=== PATIENT | female | born 1965 | race Caucasian/White ===

== ENCOUNTER 2018-09-06 00:13 | Day surgery (SDC) | payer OTHER ==
[~2018-09-06 00:13] MED LIST: AMIT10 PO; AMLODIPINE PO; ATOR10 PO; ATORVASTATIN PO; CEPH500 PO; CLOP75 PO; FLUO20 PO; FURO20 PO; HYDACE10B PO; INSDET100 SQ; INSUASPI SC; METF500 PO; METFORMIN PO; METO50 PO; POTCHL10ER PO; PROM25 PO; PROZAC PO; Percocet 5-3251 EACH PO; Prednisone20 MG PO; RANI150 PO; ROSU10TA PO; TRAM50 PO
== END 2018-09-06 22:38 | disposition home or self-care (01) ==
LOC: WOUND 00:13
DX: E11.621 Type 2 diabetes mellitus with foot ulcer (principal); L97.515 Non-pressure chronic ulcer of other part of right foot with muscle involvement without evidence of necrosis; L97.522 Non-pressure chronic ulcer of other part of left foot with fat layer exposed; E11.40 Type 2 diabetes mellitus with diabetic neuropathy, unspecified; I10 Essential (primary) hypertension; I25.10 Atherosclerotic heart disease of native coronary artery without angina pectoris; I25.2 Old myocardial infarction; E78.5 Hyperlipidemia, unspecified; Z87.891 Personal history of nicotine dependence; Z79.899 Other long term (current) drug therapy; Z79.4 Long term (current) use of insulin

== ENCOUNTER 2018-09-13 01:26 | Day surgery (SDC) | payer OTHER | END 2018-09-13 23:07 | disposition home or self-care (01) | LOC: WOUND 01:26 | DX: E11.621 Type 2 diabetes mellitus with foot ulcer (principal); L97.515 Non-pressure chronic ulcer of other part of right foot with muscle involvement without evidence of necrosis; L97.522 Non-pressure chronic ulcer of other part of left foot with fat layer exposed; E11.40 Type 2 diabetes mellitus with diabetic neuropathy, unspecified; I10 Essential (primary) hypertension; I25.10 Atherosclerotic heart disease of native coronary artery without angina pectoris; I25.2 Old myocardial infarction; E78.5 Hyperlipidemia, unspecified ==

== ENCOUNTER 2018-09-22 09:50 | Day surgery (SDC) | payer OTHER | END 2018-09-22 23:25 | disposition home or self-care (01) | LOC: WOUND 09:50 | DX: E11.621 Type 2 diabetes mellitus with foot ulcer (principal); L97.511 Non-pressure chronic ulcer of other part of right foot limited to breakdown of skin; L97.522 Non-pressure chronic ulcer of other part of left foot with fat layer exposed; E11.40 Type 2 diabetes mellitus with diabetic neuropathy, unspecified; I10 Essential (primary) hypertension; I25.10 Atherosclerotic heart disease of native coronary artery without angina pectoris; I25.2 Old myocardial infarction; E78.5 Hyperlipidemia, unspecified ==

== ENCOUNTER 2018-10-06 09:47 | Day surgery (SDC) | payer OTHER | END 2018-10-06 23:02 | disposition home or self-care (01) | LOC: WOUND 09:47 | DX: E11.621 Type 2 diabetes mellitus with foot ulcer (principal); L97.515 Non-pressure chronic ulcer of other part of right foot with muscle involvement without evidence of necrosis; I10 Essential (primary) hypertension; E78.5 Hyperlipidemia, unspecified ==

== ENCOUNTER 2018-10-13 09:50 | Day surgery (SDC) | payer OTHER | END 2018-10-13 22:55 | disposition home or self-care (01) | LOC: WOUND 09:50 | DX: E11.621 Type 2 diabetes mellitus with foot ulcer (principal); S91.301A Unspecified open wound, right foot, initial encounter; L97.512 Non-pressure chronic ulcer of other part of right foot with fat layer exposed; E11.40 Type 2 diabetes mellitus with diabetic neuropathy, unspecified; I10 Essential (primary) hypertension; I25.10 Atherosclerotic heart disease of native coronary artery without angina pectoris; I25.2 Old myocardial infarction; E78.5 Hyperlipidemia, unspecified ==

== ENCOUNTER 2018-10-20 09:58 | Day surgery (SDC) | payer OTHER | END 2018-10-21 22:39 | disposition home or self-care (01) | LOC: WOUND 09:58 | DX: E11.621 Type 2 diabetes mellitus with foot ulcer (principal); L97.511 Non-pressure chronic ulcer of other part of right foot limited to breakdown of skin; S91.301A Unspecified open wound, right foot, initial encounter; E11.40 Type 2 diabetes mellitus with diabetic neuropathy, unspecified; I10 Essential (primary) hypertension; I25.10 Atherosclerotic heart disease of native coronary artery without angina pectoris; I25.2 Old myocardial infarction; E78.5 Hyperlipidemia, unspecified ==

== ENCOUNTER 2018-10-27 00:21 | Day surgery (SDC) | payer OTHER | END 2018-10-27 22:47 | disposition home or self-care (01) | LOC: WOUND 00:21 | DX: E11.621 Type 2 diabetes mellitus with foot ulcer (principal); L97.512 Non-pressure chronic ulcer of other part of right foot with fat layer exposed; E11.40 Type 2 diabetes mellitus with diabetic neuropathy, unspecified; I25.119 Atherosclerotic heart disease of native coronary artery with unspecified angina pectoris; I25.2 Old myocardial infarction; I10 Essential (primary) hypertension; E78.5 Hyperlipidemia, unspecified | CPT/HCPCS: Q4196 ==

== ENCOUNTER 2018-11-10 09:50 | Day surgery (SDC) | payer OTHER | END 2018-11-10 22:55 | disposition home or self-care (01) | LOC: WOUND 09:50 | DX: E11.621 Type 2 diabetes mellitus with foot ulcer (principal); L97.511 Non-pressure chronic ulcer of other part of right foot limited to breakdown of skin; I10 Essential (primary) hypertension; E78.5 Hyperlipidemia, unspecified | CPT/HCPCS: Q4196 ==

== ENCOUNTER 2018-11-17 09:00 | Day surgery (SDC) | payer OTHER | END 2018-11-17 22:44 | disposition home or self-care (01) | LOC: WOUND 09:00 | DX: E11.621 Type 2 diabetes mellitus with foot ulcer (principal); L97.512 Non-pressure chronic ulcer of other part of right foot with fat layer exposed; E11.40 Type 2 diabetes mellitus with diabetic neuropathy, unspecified; I10 Essential (primary) hypertension; I25.10 Atherosclerotic heart disease of native coronary artery without angina pectoris; I25.2 Old myocardial infarction; E78.5 Hyperlipidemia, unspecified | CPT/HCPCS: G0463 ==

== ENCOUNTER 2018-11-24 10:00 | Day surgery (SDC) | payer OTHER | END 2018-11-24 22:59 | disposition home or self-care (01) | LOC: WOUND 10:00 | DX: E11.621 Type 2 diabetes mellitus with foot ulcer (principal); L97.512 Non-pressure chronic ulcer of other part of right foot with fat layer exposed; I25.10 Atherosclerotic heart disease of native coronary artery without angina pectoris; I10 Essential (primary) hypertension; I25.2 Old myocardial infarction; E11.40 Type 2 diabetes mellitus with diabetic neuropathy, unspecified; S91.301A Unspecified open wound, right foot, initial encounter | CPT/HCPCS: Q4196 ==

== ENCOUNTER 2018-12-08 09:45 | Day surgery (SDC) | payer OTHER | END 2018-12-08 22:53 | disposition home or self-care (01) | LOC: WOUND 09:45 | DX: E11.621 Type 2 diabetes mellitus with foot ulcer (principal); E11.40 Type 2 diabetes mellitus with diabetic neuropathy, unspecified; L97.511 Non-pressure chronic ulcer of other part of right foot limited to breakdown of skin; I10 Essential (primary) hypertension; I25.10 Atherosclerotic heart disease of native coronary artery without angina pectoris; I25.2 Old myocardial infarction; E78.5 Hyperlipidemia, unspecified | CPT/HCPCS: Q4196 ==

== ENCOUNTER 2018-12-22 09:47 | Day surgery (SDC) | payer OTHER | END 2018-12-22 23:26 | disposition home or self-care (01) | LOC: WOUND 09:47 | PROC: 0HDMXZZ Extraction of Right Foot Skin, External Approach (ICD-10-PCS; principal; 2018-12-22) | DX: E11.621 Type 2 diabetes mellitus with foot ulcer (principal); L97.411 Non-pressure chronic ulcer of right heel and midfoot limited to breakdown of skin; I10 Essential (primary) hypertension; E78.5 Hyperlipidemia, unspecified | CPT/HCPCS: J2250; J3010; J7040 ==

== ENCOUNTER 2018-12-29 01:01 | Day surgery (SDC) | payer OTHER | END 2018-12-29 23:27 | disposition home or self-care (01) | LOC: WOUND 01:01 | DX: E11.621 Type 2 diabetes mellitus with foot ulcer (principal); L97.512 Non-pressure chronic ulcer of other part of right foot with fat layer exposed; I10 Essential (primary) hypertension; E78.5 Hyperlipidemia, unspecified ==

== ENCOUNTER 2019-01-05 02:41 | Day surgery (SDC) | payer OTHER | END 2019-01-05 22:42 | disposition home or self-care (01) | LOC: WOUND 02:41 | DX: E11.621 Type 2 diabetes mellitus with foot ulcer (principal); L97.511 Non-pressure chronic ulcer of other part of right foot limited to breakdown of skin ==

== ENCOUNTER 2019-01-19 09:50 | Day surgery (SDC) | payer OTHER | END 2019-01-19 23:05 | disposition home or self-care (01) | LOC: WOUND 09:50 | DX: E11.621 Type 2 diabetes mellitus with foot ulcer (principal); L97.512 Non-pressure chronic ulcer of other part of right foot with fat layer exposed; I10 Essential (primary) hypertension; E78.5 Hyperlipidemia, unspecified ==

== ENCOUNTER 2019-01-26 02:04 | Day surgery (SDC) | payer OTHER | END 2019-01-26 23:59 | disposition home or self-care (01) | LOC: WOUND 02:04 | DX: E11.621 Type 2 diabetes mellitus with foot ulcer (principal); L97.511 Non-pressure chronic ulcer of other part of right foot limited to breakdown of skin; I10 Essential (primary) hypertension; E78.5 Hyperlipidemia, unspecified ==

== ENCOUNTER 2019-02-02 10:00 | Day surgery (SDC) | payer OTHER | END 2019-02-02 23:00 | disposition home or self-care (01) | LOC: WOUND 10:00 | DX: E11.621 Type 2 diabetes mellitus with foot ulcer (principal); L97.512 Non-pressure chronic ulcer of other part of right foot with fat layer exposed; I10 Essential (primary) hypertension ==

== ENCOUNTER 2019-02-09 00:39 | Day surgery (SDC) | payer OTHER | END 2019-02-10 00:07 | disposition home or self-care (01) | LOC: WOUND 00:39 | DX: E11.621 Type 2 diabetes mellitus with foot ulcer (principal); L97.512 Non-pressure chronic ulcer of other part of right foot with fat layer exposed; I10 Essential (primary) hypertension; E78.5 Hyperlipidemia, unspecified | CPT/HCPCS: G0463 ==

== ENCOUNTER 2019-03-02 00:47 | Day surgery (SDC) | payer OTHER | END 2019-03-02 23:21 | disposition home or self-care (01) | LOC: WOUND 00:47 | DX: E11.621 Type 2 diabetes mellitus with foot ulcer (principal); L97.511 Non-pressure chronic ulcer of other part of right foot limited to breakdown of skin; I10 Essential (primary) hypertension; E78.5 Hyperlipidemia, unspecified ==

== ENCOUNTER 2019-03-09 01:17 | Day surgery (SDC) | payer OTHER | END 2019-03-09 22:51 | disposition home or self-care (01) | LOC: WOUND 01:17 | DX: E11.621 Type 2 diabetes mellitus with foot ulcer (principal); L97.511 Non-pressure chronic ulcer of other part of right foot limited to breakdown of skin; I10 Essential (primary) hypertension; E78.5 Hyperlipidemia, unspecified ==

== ENCOUNTER 2019-03-16 00:46 | Day surgery (SDC) | payer OTHER | END 2019-03-16 22:51 | disposition home or self-care (01) | LOC: WOUND 00:46 | DX: E11.621 Type 2 diabetes mellitus with foot ulcer (principal); L97.511 Non-pressure chronic ulcer of other part of right foot limited to breakdown of skin; I10 Essential (primary) hypertension; E11.40 Type 2 diabetes mellitus with diabetic neuropathy, unspecified ==

== ENCOUNTER 2019-04-06 00:45 | Day surgery (SDC) | payer OTHER | END 2019-04-06 23:00 | disposition home or self-care (01) | LOC: WOUND 00:45 | DX: E11.621 Type 2 diabetes mellitus with foot ulcer (principal); L97.512 Non-pressure chronic ulcer of other part of right foot with fat layer exposed; I10 Essential (primary) hypertension; E78.5 Hyperlipidemia, unspecified ==

== ENCOUNTER 2019-04-12 09:00 | Day surgery (SDC) | payer OTHER | END 2019-04-12 23:12 | disposition home or self-care (01) | LOC: WOUND 09:00 | DX: E11.621 Type 2 diabetes mellitus with foot ulcer (principal); L97.512 Non-pressure chronic ulcer of other part of right foot with fat layer exposed; I10 Essential (primary) hypertension ==

== ENCOUNTER 2019-04-20 00:32 | Day surgery (SDC) | payer OTHER | END 2019-04-20 22:52 | disposition home or self-care (01) | LOC: WOUND 00:32 | DX: E11.621 Type 2 diabetes mellitus with foot ulcer (principal); L97.512 Non-pressure chronic ulcer of other part of right foot with fat layer exposed; E11.40 Type 2 diabetes mellitus with diabetic neuropathy, unspecified; I10 Essential (primary) hypertension; E78.5 Hyperlipidemia, unspecified; I25.10 Atherosclerotic heart disease of native coronary artery without angina pectoris; Z79.02 Long term (current) use of antithrombotics/antiplatelets; Z79.4 Long term (current) use of insulin; Z79.899 Other long term (current) drug therapy; Z88.8 Allergy status to other drugs, medicaments and biological substances | CPT/HCPCS: G0463 ==

== ENCOUNTER 2019-05-01 05:16 | Emergency (ER) | payer OTHER ==
[~2019-05-01] VITALS: Ht 170.2 cm; Wt 95.2 kg
[~2019-05-01 05:16] MED LIST changes: -INSUASPI SC; +NOVOLOG100 UNIT/1 SC
[2019-05-01 06:20] LABS: BASOPHILS ABSOLUTE AUTO 0.04 K/mm3 (0.00-0.23); BASOPHILS PERCENT AUTO 0 % (0-2); EOSINOPHILS ABSOLUTE AUTO 0.08 K/mm3 (0.00-0.68); EOSINOPHILS PERCENT AUTO 1 % (0-6); Hematocrit 38.9 % (33.0-51.0); Hemoglobin 13.3 g/dL (11.5-16.0); IMMATURE GRAN ABSOLUTE AUTO 0.04 K/mm3 (0.00-0.10); IMMATURE GRAN PERCENT AUTO 0 % (0-1); LYMPHOCYTES ABSOLUTE AUTO 1.42 K/mm3 (0.84-5.20); LYMPHOCYTES PERCENT AUTO 13 % (21-46); MONOCYTES PERCENT AUTO 5 % (4-13); Mean Corpuscular HGB 30.9 pg (26.0-34.0); Mean Corpuscular HGB Conc 34.2 g/dL (31.5-36.5); Mean Corpuscular Volume 91 fL (80-100); Mean Platelet Volume 9.5 fL (9.1-12.4); NEUTROPHILS ABSOLUTE AUTO 9.22 K/mm3 (1.96-9.15); NEUTROPHILS PERCENT AUTO 81 % (41-73); Platelet Count 233 K/mm3 (150-400); RDW Standard Deviation 39.5 fL (35.1-46.3)
[2019-05-01 06:40] LABS: Alanine Aminotransfer (ALT/SGP 94 U/L (12-78); Albumin, Blood 3.4 g/dL (3.4-5.0); Albumin/Globulin Ratio 0.9 (0.8-1.8); Alk Phos 88 U/L (50-136); Anion Gap 8 mmol/L (6-16); Aspartate Aminotrans (AST/SGOT 61 U/L (12-37); Bilirubin, Total 0.4 mg/dL (0.1-1.0); Blood Urea Nitrogen 7 mg/dL (8-24); CO2, Blood 24 mmol/L (21-32); Calcium, Blood 8.5 mg/dL (8.5-10.1); Chloride, Blood 104 mmol/L (98-108); Creatinine, Blood 0.54 mg/dL (0.40-1.00); Globulin, Blood 3.6 g/dL (2.2-4.0); Glomerular Filtration Rate >60 (60-); Glucose, Blood 232 mg/dL (70-99); Potassium, Blood 4.2 mmol/L (3.5-5.5); Sodium, Blood 136 mmol/L (136-145)
[2019-05-01 07:34] LABS: Source, Urine Clean Catch
[2019-05-01 07:37] LABS: Bilirubin, Urine Neg (Neg); Blood, Urine 5+ (Neg); Color, Urine Yellow (P-Yellow); Glucose Qualitative, Urine 2+ (Neg); Ketones, Urine 4+ (Neg); Leukocyte Esterase, Urine 3+ (Neg); Nitrite, Urine Neg (Neg); Protein, Urine 2+ (Neg); Specific Gravity, Urine 1.025 (1.003-1.022); Urobilinogen, Urine NORM (Normal)
[2019-05-01 07:47] LABS: Squamous Epithelial Cells Mod /hpf (Few)
[2019-05-01 07:48] LABS: Appearance, Urine Hazy (Clear); Bacteria Many /hpf; Calcium Oxalate Crystals Many /hpf; Mucus Light (0-Heavy)
== END 2019-05-01 12:01 | disposition short-term general hospital (02) ==
LOC: ER 05:16
PROVIDERS: Emergency Medicine
DX: A41.9 Sepsis, unspecified organism (principal); N39.0 Urinary tract infection, site not specified; N13.2 Hydronephrosis with renal and ureteral calculous obstruction; I10 Essential (primary) hypertension; E11.9 Type 2 diabetes mellitus without complications; I25.2 Old myocardial infarction; E78.5 Hyperlipidemia, unspecified; Z87.891 Personal history of nicotine dependence
CPT/HCPCS: 36415; 74176; 80053; 81001; 83605; 83690; 85025; 87040; 87086; 96361; 96365; 96375; 96376; 99285-25; J0696; J1170; J2405; J7030; J7120

== ENCOUNTER 2019-05-04 11:19 | Day surgery (SDC) | payer OTHER | END 2019-05-04 22:46 | disposition home or self-care (01) | LOC: WOUND 11:19 | DX: E11.621 Type 2 diabetes mellitus with foot ulcer (principal); I10 Essential (primary) hypertension; E78.5 Hyperlipidemia, unspecified; L97.512 Non-pressure chronic ulcer of other part of right foot with fat layer exposed; Z87.891 Personal history of nicotine dependence; Z79.02 Long term (current) use of antithrombotics/antiplatelets; Z79.4 Long term (current) use of insulin; Z79.899 Other long term (current) drug therapy ==

== ENCOUNTER 2019-05-25 09:16 | Day surgery (SDC) | payer OTHER | END 2019-05-25 23:43 | disposition home or self-care (01) | LOC: WOUND 09:16 | DX: E11.621 Type 2 diabetes mellitus with foot ulcer (principal); L97.512 Non-pressure chronic ulcer of other part of right foot with fat layer exposed; E11.40 Type 2 diabetes mellitus with diabetic neuropathy, unspecified; E11.36 Type 2 diabetes mellitus with diabetic cataract; H26.9 Unspecified cataract; I10 Essential (primary) hypertension; E78.5 Hyperlipidemia, unspecified; I25.10 Atherosclerotic heart disease of native coronary artery without angina pectoris; I25.2 Old myocardial infarction; E07.9 Disorder of thyroid, unspecified; Z79.02 Long term (current) use of antithrombotics/antiplatelets; Z79.4 Long term (current) use of insulin; Z79.899 Other long term (current) drug therapy; Z88.4 Allergy status to anesthetic agent; Z88.8 Allergy status to other drugs, medicaments and biological substances ==

== ENCOUNTER 2019-06-15 01:46 | Day surgery (SDC) | payer OTHER | END 2019-06-15 23:18 | disposition home or self-care (01) | LOC: WOUND 01:46 | DX: E11.621 Type 2 diabetes mellitus with foot ulcer (principal); L97.512 Non-pressure chronic ulcer of other part of right foot with fat layer exposed; E11.36 Type 2 diabetes mellitus with diabetic cataract; H26.9 Unspecified cataract; E11.40 Type 2 diabetes mellitus with diabetic neuropathy, unspecified; J32.9 Chronic sinusitis, unspecified; I10 Essential (primary) hypertension; E78.5 Hyperlipidemia, unspecified; I49.9 Cardiac arrhythmia, unspecified; I25.10 Atherosclerotic heart disease of native coronary artery without angina pectoris; I25.2 Old myocardial infarction; E07.9 Disorder of thyroid, unspecified; Z79.02 Long term (current) use of antithrombotics/antiplatelets; Z79.4 Long term (current) use of insulin; Z79.899 Other long term (current) drug therapy ==

== ENCOUNTER 2019-06-21 08:02 | Day surgery (SDC) | payer OTHER | END 2019-06-21 23:06 | disposition home or self-care (01) | LOC: WOUND 08:02 | DX: E11.621 Type 2 diabetes mellitus with foot ulcer (principal); L97.511 Non-pressure chronic ulcer of other part of right foot limited to breakdown of skin; E11.40 Type 2 diabetes mellitus with diabetic neuropathy, unspecified; E11.36 Type 2 diabetes mellitus with diabetic cataract; H26.9 Unspecified cataract; I10 Essential (primary) hypertension; E78.5 Hyperlipidemia, unspecified; J32.9 Chronic sinusitis, unspecified; I49.9 Cardiac arrhythmia, unspecified; I25.10 Atherosclerotic heart disease of native coronary artery without angina pectoris; I25.2 Old myocardial infarction; E07.9 Disorder of thyroid, unspecified; Z79.02 Long term (current) use of antithrombotics/antiplatelets; Z79.4 Long term (current) use of insulin; Z79.899 Other long term (current) drug therapy; Z88.4 Allergy status to anesthetic agent; Z88.8 Allergy status to other drugs, medicaments and biological substances ==

== ENCOUNTER 2019-07-05 00:15 | Day surgery (SDC) | payer OTHER | END 2019-07-05 22:59 | disposition home or self-care (01) | LOC: WOUND 00:15 | DX: E11.621 Type 2 diabetes mellitus with foot ulcer (principal); L97.512 Non-pressure chronic ulcer of other part of right foot with fat layer exposed; I10 Essential (primary) hypertension; E78.5 Hyperlipidemia, unspecified; Z79.02 Long term (current) use of antithrombotics/antiplatelets; Z79.899 Other long term (current) drug therapy; Z79.4 Long term (current) use of insulin ==

== ENCOUNTER 2019-07-26 00:29 | Day surgery (SDC) | payer OTHER | END 2019-07-26 23:02 | disposition home or self-care (01) | LOC: WOUND 00:29 | DX: E11.621 Type 2 diabetes mellitus with foot ulcer (principal); L97.512 Non-pressure chronic ulcer of other part of right foot with fat layer exposed; I10 Essential (primary) hypertension; E78.5 Hyperlipidemia, unspecified; Z79.02 Long term (current) use of antithrombotics/antiplatelets; Z79.899 Other long term (current) drug therapy; Z79.84 Long term (current) use of oral hypoglycemic drugs | CPT/HCPCS: 87070; 87075; 87076; 87147; 87205 ==

== ENCOUNTER 2019-08-02 00:12 | Day surgery (SDC) | payer OTHER | END 2019-08-02 23:15 | disposition home or self-care (01) | LOC: WOUND 00:12 | DX: E11.621 Type 2 diabetes mellitus with foot ulcer (principal); L97.512 Non-pressure chronic ulcer of other part of right foot with fat layer exposed; I10 Essential (primary) hypertension; E78.5 Hyperlipidemia, unspecified; Z79.02 Long term (current) use of antithrombotics/antiplatelets; Z79.4 Long term (current) use of insulin; Z79.899 Other long term (current) drug therapy ==

== ENCOUNTER 2019-08-09 00:12 | Day surgery (SDC) | payer OTHER | END 2019-08-09 22:48 | disposition home or self-care (01) | LOC: WOUND 00:12 | DX: E11.621 Type 2 diabetes mellitus with foot ulcer (principal); L97.512 Non-pressure chronic ulcer of other part of right foot with fat layer exposed; I10 Essential (primary) hypertension; E78.5 Hyperlipidemia, unspecified; Z79.02 Long term (current) use of antithrombotics/antiplatelets; Z79.4 Long term (current) use of insulin; Z79.899 Other long term (current) drug therapy ==

== ENCOUNTER 2019-08-16 00:26 | Day surgery (SDC) | payer OTHER | END 2019-08-16 23:12 | disposition home or self-care (01) | LOC: WOUND 00:26 | DX: E11.621 Type 2 diabetes mellitus with foot ulcer (principal); I10 Essential (primary) hypertension; E78.5 Hyperlipidemia, unspecified; L97.512 Non-pressure chronic ulcer of other part of right foot with fat layer exposed; Z79.02 Long term (current) use of antithrombotics/antiplatelets; Z79.4 Long term (current) use of insulin ==

== ENCOUNTER → 2021-07-22 | Outpatient (CLI) | payer OTHER | END | disposition home or self-care (01) | LOC: LAB SHORT 10:35 | DX: R30.9 Painful micturition, unspecified (principal) | CPT/HCPCS: 87086; 87147 ==

== ENCOUNTER 2021-12-01 02:57 | Day surgery (SDC) | payer OTHER | END 2021-12-01 22:35 | disposition home or self-care (01) | LOC: WOUND 02:57 | DX: E11.621 Type 2 diabetes mellitus with foot ulcer (principal); L97.411 Non-pressure chronic ulcer of right heel and midfoot limited to breakdown of skin; L97.512 Non-pressure chronic ulcer of other part of right foot with fat layer exposed; R77.0 Abnormality of albumin; E11.40 Type 2 diabetes mellitus with diabetic neuropathy, unspecified; Z87.891 Personal history of nicotine dependence; Z88.8 Allergy status to other drugs, medicaments and biological substances | CPT/HCPCS: A9270; G0463 ==

== ENCOUNTER 2021-12-08 05:25 | Day surgery (SDC) | payer OTHER | END 2021-12-08 22:43 | disposition home or self-care (01) | LOC: WOUND 05:25 | DX: E11.621 Type 2 diabetes mellitus with foot ulcer (principal); L97.512 Non-pressure chronic ulcer of other part of right foot with fat layer exposed; R77.0 Abnormality of albumin; E11.40 Type 2 diabetes mellitus with diabetic neuropathy, unspecified | CPT/HCPCS: A9270 ==

== ENCOUNTER 2021-12-15 01:25 | Day surgery (SDC) | payer OTHER | END 2021-12-15 23:00 | disposition home or self-care (01) | LOC: WOUND 01:25 | DX: E11.621 Type 2 diabetes mellitus with foot ulcer (principal); L97.512 Non-pressure chronic ulcer of other part of right foot with fat layer exposed; R77.0 Abnormality of albumin; E11.40 Type 2 diabetes mellitus with diabetic neuropathy, unspecified | CPT/HCPCS: A9270 ==

== ENCOUNTER → 2021-12-29 | Day surgery (SDC) | payer OTHER | LOC: WOUND 03:15 | DX: E11.621 Type 2 diabetes mellitus with foot ulcer (principal); L97.512 Non-pressure chronic ulcer of other part of right foot with fat layer exposed; R77.0 Abnormality of albumin; E11.40 Type 2 diabetes mellitus with diabetic neuropathy, unspecified | CPT/HCPCS: A9270 ==

== ENCOUNTER 2022-01-25 03:40 | Day surgery (SDC) | payer OTHER | END 2022-01-25 22:40 | disposition home or self-care (01) | LOC: WOUND 03:40 | DX: E11.621 Type 2 diabetes mellitus with foot ulcer (principal); L97.512 Non-pressure chronic ulcer of other part of right foot with fat layer exposed; R77.0 Abnormality of albumin; E11.40 Type 2 diabetes mellitus with diabetic neuropathy, unspecified; I10 Essential (primary) hypertension | CPT/HCPCS: G0463 ==

== ENCOUNTER 2022-02-08 01:18 | Day surgery (SDC) | payer OTHER | END 2022-02-08 23:02 | disposition home or self-care (01) | LOC: WOUND 01:18 | DX: E11.621 Type 2 diabetes mellitus with foot ulcer (principal); L97.512 Non-pressure chronic ulcer of other part of right foot with fat layer exposed; R77.0 Abnormality of albumin; E11.40 Type 2 diabetes mellitus with diabetic neuropathy, unspecified; I10 Essential (primary) hypertension; E78.5 Hyperlipidemia, unspecified ==

== ENCOUNTER 2022-03-16 07:53 | Day surgery (SDC) | payer OTHER | END 2022-03-16 22:46 | disposition home or self-care (01) | LOC: WOUND 07:53 | DX: E11.621 Type 2 diabetes mellitus with foot ulcer (principal); L97.512 Non-pressure chronic ulcer of other part of right foot with fat layer exposed; E11.40 Type 2 diabetes mellitus with diabetic neuropathy, unspecified; R77.0 Abnormality of albumin ==

== ENCOUNTER 2022-03-30 02:47 | Day surgery (SDC) | payer OTHER | END 2022-03-30 23:05 | disposition home or self-care (01) | LOC: WOUND 02:47 | DX: E11.621 Type 2 diabetes mellitus with foot ulcer (principal); L97.512 Non-pressure chronic ulcer of other part of right foot with fat layer exposed; R77.0 Abnormality of albumin; E11.40 Type 2 diabetes mellitus with diabetic neuropathy, unspecified ==

== ENCOUNTER 2022-04-20 03:56 | Day surgery (SDC) | payer OTHER | END 2022-04-20 23:02 | disposition home or self-care (01) | LOC: WOUND 03:56 | DX: E11.621 Type 2 diabetes mellitus with foot ulcer (principal); L97.512 Non-pressure chronic ulcer of other part of right foot with fat layer exposed; E11.40 Type 2 diabetes mellitus with diabetic neuropathy, unspecified | CPT/HCPCS: A9270; G0463 ==

== ENCOUNTER 2022-05-04 03:22 | Day surgery (SDC) | payer OTHER | END 2022-05-04 22:40 | disposition home or self-care (01) | LOC: WOUND 03:22 | DX: E11.622 Type 2 diabetes mellitus with other skin ulcer (principal); L97.512 Non-pressure chronic ulcer of other part of right foot with fat layer exposed; I87.2 Venous insufficiency (chronic) (peripheral); E11.40 Type 2 diabetes mellitus with diabetic neuropathy, unspecified | CPT/HCPCS: G0463 ==

== ENCOUNTER 2022-05-17 10:21 | Day surgery (SDC) | payer OTHER | END 2022-05-17 22:41 | disposition home or self-care (01) | LOC: WOUND 10:21 | DX: E11.621 Type 2 diabetes mellitus with foot ulcer (principal); L97.512 Non-pressure chronic ulcer of other part of right foot with fat layer exposed; I10 Essential (primary) hypertension; E78.5 Hyperlipidemia, unspecified; E11.40 Type 2 diabetes mellitus with diabetic neuropathy, unspecified ==

== ENCOUNTER 2022-05-31 00:55 | Day surgery (SDC) | payer OTHER | END 2022-05-31 22:43 | disposition home or self-care (01) | LOC: WOUND 00:55 | DX: E11.621 Type 2 diabetes mellitus with foot ulcer (principal); L97.512 Non-pressure chronic ulcer of other part of right foot with fat layer exposed; E11.40 Type 2 diabetes mellitus with diabetic neuropathy, unspecified; R77.0 Abnormality of albumin; I10 Essential (primary) hypertension ==

== ENCOUNTER 2022-10-27 00:05 | Day surgery (SDC) | payer OTHER | END 2022-10-27 22:49 | disposition home or self-care (01) | LOC: WOUND 00:05 | DX: E11.621 Type 2 diabetes mellitus with foot ulcer (principal); L97.526 Non-pressure chronic ulcer of other part of left foot with bone involvement without evidence of necrosis; E11.42 Type 2 diabetes mellitus with diabetic polyneuropathy; R77.0 Abnormality of albumin; M10.9 Gout, unspecified | CPT/HCPCS: G0463 ==

== ENCOUNTER 2022-11-03 00:43 | Day surgery (SDC) | payer OTHER | END 2022-11-03 22:39 | disposition home or self-care (01) | LOC: WOUND 00:43 | DX: E11.621 Type 2 diabetes mellitus with foot ulcer (principal); L97.526 Non-pressure chronic ulcer of other part of left foot with bone involvement without evidence of necrosis; E11.42 Type 2 diabetes mellitus with diabetic polyneuropathy; R77.0 Abnormality of albumin; M10.9 Gout, unspecified; E11.69 Type 2 diabetes mellitus with other specified complication; M86.172 Other acute osteomyelitis, left ankle and foot | CPT/HCPCS: A9270 ==

== ENCOUNTER 2022-11-17 03:14 | Day surgery (SDC) | payer OTHER | END 2022-11-17 22:43 | disposition home or self-care (01) | LOC: WOUND 03:14 | DX: E11.621 Type 2 diabetes mellitus with foot ulcer (principal); L97.522 Non-pressure chronic ulcer of other part of left foot with fat layer exposed; E78.5 Hyperlipidemia, unspecified; I10 Essential (primary) hypertension; M86.172 Other acute osteomyelitis, left ankle and foot; E11.69 Type 2 diabetes mellitus with other specified complication; E11.42 Type 2 diabetes mellitus with diabetic polyneuropathy; R77.0 Abnormality of albumin; M10.9 Gout, unspecified | CPT/HCPCS: A9270; G0463 ==

== ENCOUNTER → 2022-11-24 | Day surgery (SDC) | payer OTHER | LOC: WOUND 03:09 | DX: E11.621 Type 2 diabetes mellitus with foot ulcer (principal); L97.522 Non-pressure chronic ulcer of other part of left foot with fat layer exposed; E78.5 Hyperlipidemia, unspecified; I10 Essential (primary) hypertension; E11.69 Type 2 diabetes mellitus with other specified complication; L97.526 Non-pressure chronic ulcer of other part of left foot with bone involvement without evidence of necrosis; E11.42 Type 2 diabetes mellitus with diabetic polyneuropathy; R77.0 Abnormality of albumin; M10.9 Gout, unspecified | CPT/HCPCS: G0463 ==

== ENCOUNTER 2022-12-15 04:30 | Day surgery (SDC) | payer OTHER | END 2022-12-15 22:41 | disposition home or self-care (01) | LOC: WOUND 04:30 | DX: E11.621 Type 2 diabetes mellitus with foot ulcer (principal); L97.526 Non-pressure chronic ulcer of other part of left foot with bone involvement without evidence of necrosis; E11.69 Type 2 diabetes mellitus with other specified complication; M86.672 Other chronic osteomyelitis, left ankle and foot; E11.42 Type 2 diabetes mellitus with diabetic polyneuropathy; R77.0 Abnormality of albumin; M10.9 Gout, unspecified | CPT/HCPCS: G0463 ==

== ENCOUNTER 2022-12-22 01:56 | Day surgery (SDC) | payer OTHER | END 2022-12-22 22:46 | disposition home or self-care (01) | LOC: WOUND 01:56 | DX: E11.621 Type 2 diabetes mellitus with foot ulcer (principal); L97.526 Non-pressure chronic ulcer of other part of left foot with bone involvement without evidence of necrosis; E11.69 Type 2 diabetes mellitus with other specified complication; M86.672 Other chronic osteomyelitis, left ankle and foot; E11.42 Type 2 diabetes mellitus with diabetic polyneuropathy; R77.0 Abnormality of albumin; M10.9 Gout, unspecified | CPT/HCPCS: G0463 ==

== ENCOUNTER 2022-12-29 04:05 | Day surgery (SDC) | payer OTHER | END 2022-12-29 22:57 | disposition home or self-care (01) | LOC: WOUND 04:05 | DX: E11.621 Type 2 diabetes mellitus with foot ulcer (principal); I10 Essential (primary) hypertension; E78.5 Hyperlipidemia, unspecified; L97.519 Non-pressure chronic ulcer of other part of right foot with unspecified severity; E11.42 Type 2 diabetes mellitus with diabetic polyneuropathy; M10.9 Gout, unspecified; R77.0 Abnormality of albumin | CPT/HCPCS: G0463 ==

== ENCOUNTER → 2025-01-14 | Outpatient (CLI) | payer OTHER ==
[2025-01-14 17:53] LABS: BASOPHILS ABSOLUTE AUTO 0.09 K/mm3 (0.00-0.23); BASOPHILS PERCENT AUTO 1 % (0-2); EOSINOPHILS ABSOLUTE AUTO 0.20 K/mm3 (0.00-0.68); EOSINOPHILS PERCENT AUTO 2 % (0-6); Hematocrit 37.5 % (33.0-51.0); Hemoglobin 11.8 g/dL (11.5-16.0); IMMATURE GRAN ABSOLUTE AUTO 0.05 K/mm3 (0.00-0.10); IMMATURE GRAN PERCENT AUTO 1 % (0-1); LYMPHOCYTES ABSOLUTE AUTO 1.76 K/mm3 (0.84-5.20); LYMPHOCYTES PERCENT AUTO 18 % (21-46); MONOCYTES ABSOLUTE AUTO 0.77 K/mm3 (0.16-1.47); MONOCYTES PERCENT AUTO 8 % (4-13); Mean Corpuscular HGB Conc 31.5 g/dL (31.5-36.5); Mean Corpuscular Volume 84 fL (80-100); NEUTROPHILS ABSOLUTE AUTO 7.16 K/mm3 (1.96-9.15); NEUTROPHILS PERCENT AUTO 71 % (41-73); NRBC ABSOLUTE 0.00 K/mm3 (0.00-0.02); NRBC Auto 0.0 /100 WBC (0.0-0.2); Platelet Count 353 K/mm3 (150-400); RDW Coefficient Variation 14.3 % (11.7-14.2); RDW Standard Deviation 43.9 fL (35.1-46.3)
[2025-01-14 17:58] LABS: Alanine Aminotransfer (ALT/SGP 33 U/L (12-78); Albumin, Blood 3.4 g/dL (3.4-5.0); Albumin/Globulin Ratio 0.9 (0.8-1.8); Anion Gap 9 mmol/L (3-11); Aspartate Aminotrans (AST/SGOT 24 U/L (12-37); Bilirubin, Total 0.3 mg/dL (0.1-1.0); Blood Urea Nitrogen 7 mg/dL (8-24); CHOL/HDL RATIO 3.2; CO2, Blood 27 mmol/L (21-32); Calcium, Blood 8.3 mg/dL (8.5-10.1); Chloride, Blood 98 mmol/L (98-108); Cholesterol 158 mg/dL (50-200); Creatinine, Blood 0.58 mg/dL (0.40-1.00); Globulin, Blood 3.9 g/dL (2.2-4.0); Glucose, Blood 195 mg/dL (70-99); HDL Cholesterol 49 mg/dL (>39); LDL/HDL RATIO 1.5; Low Density Lipoprotein Chol 75 mg/dL (0-110); Potassium, Blood 4.7 mmol/L (3.5-5.5); Sodium, Blood 129 mmol/L (136-145); Thyroid Stimulating Hormone 0.437 uIU/mL (0.360-4.800); Total Protein, Blood 7.3 g/dL (6.4-8.2); Triglycerides 168 mg/dL (30-160); Very Low Density Lipoprot Chol 33 mg/dL (6-32)
== END ==
LOC: LAB 16:25 → LAB SHORT 16:25
PROVIDERS: Nurse Practitioner Family
DX: Z51.81 Encounter for therapeutic drug level monitoring (principal); Z79.899 Other long term (current) drug therapy
CPT/HCPCS: 80053; 80061; 82306; 82607; 82746; 84439; 84443; 84481; 85025

== ENCOUNTER 2025-01-30 21:39 | Emergency (ER) | payer OTHER ==
[~2025-01-30] VITALS: Ht 170.2 cm; Wt 86.6 kg
[2025-01-30 21:44] VITALS: BP 141/71
[2025-01-30] MEDS ORDERED: RX Prepack 6 Tabs Oxycodone 5mg UD ONE (22:55)
[2025-01-30] MEDS ORDERED: OXAYDO5 M2 PO (23:24)
== END 2025-01-30 23:31 | disposition home or self-care (01) ==
LOC: ER 21:39
DX: S42.212A Unspecified displaced fracture of surgical neck of left humerus, initial encounter for closed fracture (principal); I10 Essential (primary) hypertension; E11.9 Type 2 diabetes mellitus without complications; E78.5 Hyperlipidemia, unspecified; I25.2 Old myocardial infarction; Z88.8 Allergy status to other drugs, medicaments and biological substances; Z79.4 Long term (current) use of insulin; Z79.02 Long term (current) use of antithrombotics/antiplatelets; Z79.84 Long term (current) use of oral hypoglycemic drugs; Z79.899 Other long term (current) drug therapy; W01.0XXA Fall on same level from slipping, tripping and stumbling without subsequent striking against object, initial encounter
CPT/HCPCS: 73060; 99283-25; A9270